=== PATIENT | male | born 1965 | race Caucasian/White ===

== ENCOUNTER 2017-06-29 15:13 | Emergency (ER) | payer OTHER ==
[~2017-06-29] VITALS: Ht 172.7 cm; Wt 74.4 kg
[~2017-06-29 15:13] MED LIST: DIO80 PO; GLU5 PO; GLU500 PO; JANUVIA PO; VITAMIN D PO
[2017-06-29 15:16] VITALS: Ht 172.7 cm; Wt 74.4 kg
[2017-06-29 16:42] VITALS: BP 120/64
== END 2017-06-29 16:42 | disposition home or self-care (01) ==
LOC: ED 15:13
DX: K64.9 Unspecified hemorrhoids (principal); L60.0 Ingrowing nail; F79 Unspecified intellectual disabilities; Z90.49 Acquired absence of other specified parts of digestive tract